=== PATIENT | male | born 1980 | race African-American/Black ===

== ENCOUNTER 2023-07-24 05:48 | Inpatient (IN) | payer OTHER ==
[~2023-07-24] VITALS: Ht 190.5 cm; Wt 99.0 kg
[2023-07-24 06:36] LABS: Urine Bacteria NONE SEEN /hpf (None Seen); Urine Blood Negative /uL (Negative); Urine Clarity Clear (Clear); Urine Color Yellow (Yellow); Urine Protein, UAD Negative (Negative); Urine Specific Gravity 1.013 (1.001-1.035); Urine Urobilinogen Normal (Negative); Urine WBC <1 /hpf (0 - 3)
[2023-07-24 06:38] LABS: Basophils # (auto) 0.1 10 ^3/uL (0-0.2); Basophils % (auto) 0.8 % (0.0-2.0); Eosinophils # (auto) 0.1 10 ^3/uL (0-0.8); Eosinophils % (auto) 0.8 % (0.0-7.0); Hematocrit 45.8 % (41.0-53.0); Hemoglobin 15.4 g/dL (13.5-17.5); Lymphocytes # (auto) 2.7 10 ^3/uL (0.4-5.4); Lymphocytes % (auto) 26.8 % (10.0-50.0); Mean Corpuscular Hemoglobin 27.1 pg (28.0-32.0); Mean Corpuscular Hgb Conc. 33.6 g/dL (32.0-36.0); Mean Corpuscular Volume 80.7 fL (80.0-100.0); Monocytes # (auto) 0.8 10 ^3/uL (0-1.3); Monocytes % (auto) 8.2 % (0.0-12.0); Neutrophils # (auto) 6.3 10 ^3/uL (1.6-8.6); Neutrophils % (auto) 63.4 % (37.0-80.0); Red Blood Cells 5.68 10^6/uL (4.5-5.90); Red Cell Distribution Width 14.3 % (11.8-14.3)
[2023-07-24 06:54] LABS: Alanine Aminotransferase 27 U/L (7-40); Albumin 5.3 g/dL (3.2-4.8); Alkaline Phosphatase 79 U/L (46-116); Anion Gap 5 (5-15); Aspartate Aminotransferase 17 U/L (13-40); BUN/Creatinine Ratio 6.3 (10.0-20.0); Bilirubin, Total 1.1 mg/dL (0.2-1.0); Blood Urea Nitrogen 8 mg/dL (9-23); Calcium 9.3 mg/dL (8.7-10.4); Carbon Dioxide 26 mmol/L (20-30); Chloride 107 mmol/L (98-107); Glucose 109 mg/dL (74-106); Lipase 61 U/L (12-53); Potassium 3.6 mmol/L (3.5-5.1); Sodium 138 mmol/L (136-145)
[2023-07-24] MEDS ORDERED: SODIUM CHLORIDE 0.9% 1,000 ML IV ONE ×2 (11:45)
[2023-07-24] MEDS ORDERED: cefTRIAXone 1GM/50ML D5W 50 ML IV ONE (12:30)
[2023-07-24] MEDS ORDERED: metroNIDAZOLE 500MG/100ML 100 ML IV ONE (12:30)
[2023-07-24] MEDS ORDERED: ONDANSETRON HCL 4 MG/2 ML VIAL IV PRN (13:15)
[2023-07-24] MEDS ORDERED: ACETAMINOPHEN 325 MG TAB PO PRN (13:15)
[2023-07-24] MEDS ORDERED: SODIUM CHLORIDE 0.9% 1,000 ML IV SCH (13:15)
[2023-07-24] MEDS ORDERED: NITROGLYCERIN 0.4 MG SL TAB SL PRN (13:30)
[2023-07-24] MEDS ORDERED: MORPHINE SULFATE INJ 2 MG/ml SYRG IV PRN (13:30)
[2023-07-24] MEDS: metroNIDAZOLE 500MG/100ML 100 ML IV SCH ×2 (14:00→21:09)
[2023-07-24 15:58] VITALS: TEMP 36.4
[2023-07-24 16:00] VITALS: PULSE 66; RESP 18; O2SAT 100
[2023-07-24 16:58] VITALS: BP 145/94; PULSE 66; RESP 18; TEMP 97.7; O2SAT 100
[2023-07-24] MEDS: MORPHINE SULFATE INJ 2 MG/ml SYRG IV PRN (18:00)
[2023-07-24] MEDS: D5W/SOD CHLO 0.9% 1,000 ML IV SCH (18:02)
[2023-07-24 22:00] VITALS: BP 145/86; PULSE 72; RESP 18; TEMP 98.5; O2SAT 97
[2023-07-25] VITALS (7 sets, daily range): BP systolic 131–170; BP diastolic 82–96; PULSE 78–90; RESP 18–99; TEMP 36.7; O2SAT 96–99
[2023-07-25] MEDS: D5W/SOD CHLO 0.9% 1,000 ML IV SCH ×4 (02:35→23:25)
[2023-07-25] MEDS: hydrALAZINE HCL 20 MG/ML VL IV PRN ×2 (05:06→07:27)
[2023-07-25] MEDS: metroNIDAZOLE 500MG/100ML 100 ML IV SCH ×3 (05:52→22:01)
[2023-07-25 06:37] LABS: Basophils # (auto) 0 10 ^3/uL (0-0.2); Basophils % (auto) 0.4 % (0.0-2.0); Eosinophils # (auto) 0.1 10 ^3/uL (0-0.8); Eosinophils % (auto) 0.8 % (0.0-7.0); Hematocrit 42.4 % (41.0-53.0); Hemoglobin 14.5 g/dL (13.5-17.5); Lymphocytes # (auto) 1.8 10 ^3/uL (0.4-5.4); Lymphocytes % (auto) 16.7 % (10.0-50.0); Mean Corpuscular Hemoglobin 27.6 pg (28.0-32.0); Mean Corpuscular Hgb Conc. 34.1 g/dL (32.0-36.0); Mean Corpuscular Volume 80.8 fL (80.0-100.0); Neutrophils # (auto) 7.8 10 ^3/uL (1.6-8.6); Neutrophils % (auto) 73.1 % (37.0-80.0); Red Blood Cells 5.26 10^6/uL (4.5-5.90); Red Cell Distribution Width 13.7 % (11.8-14.3); White Blood Cell 10.7 10^3/uL (4.4-10.8)
[2023-07-25 06:48] LABS: Alanine Aminotransferase 21 U/L (7-40); Albumin 4.8 g/dL (3.2-4.8); Alkaline Phosphatase 68 U/L (46-116); Anion Gap 8 (5-15); Aspartate Aminotransferase 12 U/L (13-40); Blood Urea Nitrogen 9 mg/dL (9-23); Carbon Dioxide 26 mmol/L (20-30); Chloride 105 mmol/L (98-107); Glucose 94 mg/dL (74-106); Potassium 3.4 mmol/L (3.5-5.1); Sodium 139 mmol/L (136-145)
[2023-07-25 06:49] LABS: Bilirubin, Total 1.2 mg/dL (0.2-1.0); Total Protein 7.2 g/dL (5.7-8.2)
[2023-07-25] MEDS: MORPHINE SULFATE INJ 2 MG/ml SYRG IV PRN ×2 (07:27→20:37)
[2023-07-25] MEDS ORDERED: cefTRIAXone 1GM/50ML D5W 50 ML IV ONE (10:30)
[2023-07-25] MEDS ORDERED: LOSARTAN POTASSIUM 50 MG TAB PO ONE (11:00)
[2023-07-25] MEDS ORDERED: METOPROLOL TARTRATE 50 MG TAB PO ONE (11:00)
[2023-07-25] MEDS: LORazepam 0.5 MG TAB PO PRN (11:03)
[2023-07-25] MEDS: HYDROcodone-ACET 5/325MG TAB PO PRN (13:16)
[2023-07-25] MEDS: METOPROLOL TARTRATE 50 MG TAB PO SCH ×2 (22:01→22:05)
[2023-07-26] VITALS (7 sets, daily range): BP systolic 141–162; BP diastolic 88–104; PULSE 85–97; RESP 16–95; TEMP 97.6–99.5; O2SAT 95–98
[2023-07-26] MEDS: D5W/SOD CHLO 0.9% 1,000 ML IV SCH ×3 (05:53→19:25)
[2023-07-26] MEDS ORDERED: DOCUSATE SOD 100 MG CAP PO ONE (06:00)
[2023-07-26] MEDS ORDERED: DOCUSATE SOD 100 MG CAP PO PRN (06:00)
[2023-07-26] MEDS: metroNIDAZOLE 500MG/100ML 100 ML IV SCH ×3 (06:01→22:45)
[2023-07-26] MEDS: LORazepam 0.5 MG TAB PO PRN (08:43)
[2023-07-26] MEDS: METOPROLOL TARTRATE 50 MG TAB PO SCH ×2 (08:44→22:45)
[2023-07-26] MEDS: LOSARTAN POTASSIUM 50 MG TAB PO SCH (08:44)
[2023-07-26] MEDS: cefTRIAXone 1GM/50ML D5W 50 ML IV SCH (08:45)
[2023-07-26] MEDS: HYDROcodone-ACET 5/325MG TAB PO PRN (08:45)
[2023-07-26] MEDS: hydrALAZINE HCL 20 MG/ML VL IV PRN (10:29)
[2023-07-26] MEDS ORDERED: IOHEXOL 300 MG/ML 100ML BOTTLE IJ ONE (12:17)
[2023-07-26] MEDS ORDERED: POTASSIUM CHL 20 Meq TABLET PO ONE (14:00)
[2023-07-26] MEDS: MORPHINE SULFATE INJ 2 MG/ml SYRG IV PRN (16:17)
[2023-07-27] VITALS (7 sets, daily range): BP systolic 148–162; BP diastolic 76–107; PULSE 76–100; RESP 18; TEMP 97.7–98.9; O2SAT 97–99
[2023-07-27] MEDS: D5W/SOD CHLO 0.9% 1,000 ML IV SCH ×4 (02:05→21:16)
[2023-07-27] MEDS: metroNIDAZOLE 500MG/100ML 100 ML IV SCH ×3 (06:18→21:10)
[2023-07-27] MEDS: LOSARTAN POTASSIUM 50 MG TAB PO SCH (10:01)
[2023-07-27] MEDS: cefTRIAXone 1GM/50ML D5W 50 ML IV SCH (10:02)
[2023-07-27] MEDS: METOPROLOL TARTRATE 50 MG TAB PO SCH ×2 (10:02→21:11)
[2023-07-27] MEDS: hydrALAZINE HCL 20 MG/ML VL IV PRN (13:33)
[2023-07-28] VITALS (7 sets, daily range): BP systolic 130–154; BP diastolic 76–100; PULSE 66–90; RESP 18–21; TEMP 97.6–99.8; O2SAT 94–97
[2023-07-28] MEDS: D5W/SOD CHLO 0.9% 1,000 ML IV SCH ×3 (04:51→18:05)
[2023-07-28] MEDS: metroNIDAZOLE 500MG/100ML 100 ML IV SCH ×3 (05:00→22:22)
[2023-07-28] MEDS: METOPROLOL TARTRATE 50 MG TAB PO SCH ×2 (09:19→22:31)
[2023-07-28] MEDS: LOSARTAN POTASSIUM 50 MG TAB PO SCH (09:20)
[2023-07-28] MEDS: cefTRIAXone 1GM/50ML D5W 50 ML IV SCH (09:21)
[2023-07-29] MEDS: D5W/SOD CHLO 0.9% 1,000 ML IV SCH ×4 (01:06→20:45)
[2023-07-29] MEDS: metroNIDAZOLE 500MG/100ML 100 ML IV SCH ×3 (05:20→21:37)
[2023-07-29 05:52] VITALS: BP 129/88; PULSE 67; RESP 18; TEMP 98.2; O2SAT 97
[2023-07-29 09:00] VITALS: BP 145/83; PULSE 70; RESP 20; TEMP 98.1; O2SAT 96
[2023-07-29] MEDS: cefTRIAXone 1GM/50ML D5W 50 ML IV SCH (09:52)
[2023-07-29] MEDS: LOSARTAN POTASSIUM 50 MG TAB PO SCH (09:53)
[2023-07-29] MEDS: METOPROLOL TARTRATE 50 MG TAB PO SCH ×2 (09:53→21:37)
[2023-07-29 13:00] VITALS: BP 151/105; PULSE 75; RESP 16; TEMP 98.3; O2SAT 99
[2023-07-29 17:00] VITALS: BP 142/100; PULSE 69; RESP 20; TEMP 98.4; O2SAT 97
[2023-07-29 20:00] VITALS: PULSE 66; RESP 18; O2SAT 97
[2023-07-29 23:54] VITALS: BP 147/92; PULSE 66; RESP 18; TEMP 98; O2SAT 97
[2023-07-30] MEDS: D5W/SOD CHLO 0.9% 1,000 ML IV SCH ×2 (03:25→08:57)
[2023-07-30 04:33] VITALS: BP 140/83; PULSE 65; RESP 18; TEMP 98.2; O2SAT 98
[2023-07-30] MEDS: metroNIDAZOLE 500MG/100ML 100 ML IV SCH (05:18)
[2023-07-30 06:02] LABS: Basophils # (auto) 0.1 10 ^3/uL (0-0.2); Basophils % (auto) 0.8 % (0.0-2.0); Eosinophils # (auto) 0.1 10 ^3/uL (0-0.8); Eosinophils % (auto) 1.3 % (0.0-7.0); Lymphocytes # (auto) 1.9 10 ^3/uL (0.4-5.4); Lymphocytes % (auto) 24.4 % (10.0-50.0); Mean Corpuscular Hemoglobin 27.1 pg (28.0-32.0); Mean Corpuscular Hgb Conc. 34.1 g/dL (32.0-36.0); Mean Corpuscular Volume 79.5 fL (80.0-100.0); Monocytes % (auto) 13.6 % (0.0-12.0); Neutrophils # (auto) 4.6 10 ^3/uL (1.6-8.6); Neutrophils % (auto) 59.9 % (37.0-80.0); Nucleated Red Blood Cells % 0.1 %; Red Blood Cells 5.15 10^6/uL (4.5-5.90); Red Cell Distribution Width 13.8 % (11.8-14.3); White Blood Cell 7.7 10^3/uL (4.4-10.8)
[2023-07-30 06:08] LABS: Alanine Aminotransferase 12 U/L (7-40); Albumin 4.1 g/dL (3.2-4.8); Alkaline Phosphatase 57 U/L (46-116); Anion Gap 4 (5-15); Aspartate Aminotransferase < 8 U/L (13-40); BUN/Creatinine Ratio 5.1 (10.0-20.0); Blood Urea Nitrogen 7 mg/dL (9-23); Calcium 9.3 mg/dL (8.7-10.4); Carbon Dioxide 30 mmol/L (20-30); Chloride 106 mmol/L (98-107); Glucose 101 mg/dL (74-106); Sodium 140 mmol/L (136-145)
[2023-07-30 06:09] LABS: Bilirubin, Total 0.6 mg/dL (0.2-1.0)
[2023-07-30 08:00] VITALS: BP 142/90; PULSE 66; RESP 17; TEMP 98.2; O2SAT 99
[2023-07-30 08:41] VITALS: BP 142/90; PULSE 66; RESP 17; TEMP 98.2; O2SAT 99
[2023-07-30] MEDS: cefTRIAXone 1GM/50ML D5W 50 ML IV SCH (08:55)
[2023-07-30] MEDS: METOPROLOL TARTRATE 50 MG TAB PO SCH (08:56)
[2023-07-30] MEDS: LOSARTAN POTASSIUM 50 MG TAB PO SCH (08:56)
[2023-07-30] MEDS: hydrALAZINE HCL 20 MG/ML VL IV PRN (11:40)
[2023-07-30] MEDS ORDERED: MET500T PO (12:15)
[2023-07-30] MEDS ORDERED: LEVO500T91 PO (12:15)
[2023-07-30] MEDS ORDERED: HYDR-4902 PO (12:15)
[2023-07-30] MEDS ORDERED: LOSA100T33 PO (12:15)
[2023-07-30] MEDS ORDERED: MET50T PO (12:15)
[2023-07-30 12:51] VITALS: BP 161/89; PULSE 63; RESP 19; TEMP 98; O2SAT 100
[2023-07-30 13:02] VITALS: BP 161/89; PULSE 63; RESP 19; TEMP 98; O2SAT 100
== END 2023-07-30 13:44 | disposition home or self-care (01) | DRG 392 ==
LOC: ER 05:48 → OVERFLOW 13:26 → WEST WING 15:33
PROVIDERS: ADMIT Nurse Practitioner Family; ATTEND Family Medicine
DX: K57.32 Diverticulitis of large intestine without perforation or abscess without bleeding (principal); I10 Essential (primary) hypertension; Z63.4 Disappearance and death of family member; Z79.899 Other long term (current) drug therapy; F41.9 Anxiety disorder, unspecified
CPT/HCPCS: 36415; 74176; 74177; 80053; 81001; 83605; 83690; 85025; 87040; 93306; 96361; 96365; 96368; G0378; J0696; J3490; J7042